=== PATIENT | male | born 1935 | race Caucasian/White ===

== ENCOUNTER 2022-08-01 15:19 | Emergency (ER) | payer MEDICARE ==
[2022-08-01 15:54] LABS: ESTIMATED GFR 54 mL/min (>60)
[2022-08-01] MEDS ORDERED: Sodium Chloride 0.9% 1,000 ML IV SCH ×2 (16:15→17:45)
== END 2022-08-01 18:53 | disposition home or self-care (01) ==
LOC: JP.ED 15:19
DX: R55 Syncope and collapse (principal); I44.0 Atrioventricular block, first degree; E86.0 Dehydration; S00.01XA Abrasion of scalp, initial encounter; W19.XXXA Unspecified fall, initial encounter
CPT/HCPCS: 36415; 70450; 80053; 80307; 85025; 85610; 85730; 86140; 93005; 96360; 96361; 99284; J7030; 93010; 99283